=== PATIENT | male | born 1960 | race Hispanic/Latino ===

== ENCOUNTER 2021-09-04 18:26 | Emergency (ER) | payer SELFPAY ==
[~2021-09-04] VITALS: Ht 177.8 cm; Wt 90.7 kg
[~2021-09-04 18:26] MED LIST: ESIDRIX25 MG PO; POTASSIUM CHLO10 ME1 PO; SERTRALINE HCL50 MG PO; Z NIFEDIPINE PO; Z.0.CRESTOR20 MG PO
[2021-09-04] MEDS ORDERED: HYDROCODONE/APAP 5MG-325MG TAB PO ONE (18:45)
[2021-09-04] MEDS ORDERED: ACETAMINOPHEN-1 EAC4 PO (19:37)
[2021-09-04] MEDS ORDERED: PREDNISONE20 MG PO (19:37)
== END 2021-09-04 19:43 | disposition home or self-care (01) ==
LOC: ER 18:37
DX: M54.32 Sciatica, left side (principal)
CPT/HCPCS: 72100; 99283